=== PATIENT | female | born 1955 | race Caucasian/White ===

== ENCOUNTER 2021-09-13 13:15 | Inpatient (IN) | payer MEDICARE, OTHER ==
[~2021-09-13] VITALS: Ht 172.7 cm; Wt 85.7 kg
--- NOTE | 2021-09-13 14:35 | NUR ---
TAKEN TO CT
--- NOTE | 2021-09-13 14:55 | NUR ---
BLOOD DRAWN AND SENT TO LAB
[2021-09-13 14:58] LABS: BASOPHILS % (AUTO) 0.6 % (0.0-2.0); EOSINOPHILS % (AUTO) 2.2 % (0.0-6.0); HEMATOCRIT 38 % (33-45); HEMOGLOBIN 12.4 g/dL (11.5-14.8); LYMPHOCYTES # (AUTO) 1.1 K/uL (0.8-4.8); MEAN CORPUSCULAR HGB CONC 33 g/dl (31.0-36.0); MEAN CORPUSCULAR VOLUME 96 fL (82-100); MONOCYTES # (AUTO) 0.4 K/uL (0.1-1.30); MONOCYTES % (AUTO) 7.4 % (2.0-12.0); NEUTROPHILS # (AUTO) 3.7 K/uL (1.8-8.9); NEUTROPHILS % (AUTO) 68.8 % (43.0-81.0); PLATELET COUNT (AUTO) 185 K/uL (150-450); RED BLOOD CELL COUNT(AUTO) 3.91 MIL/uL (4.0-5.2); WHITE BLOOD COUNT (AUTO) 5.4 K/uL (4.3-11.0)
[2021-09-13 15:12] LABS: CALCIUM, SERUM 9.1 mg/dL (8.5-10.1); CARBON DIOXIDE 27 mmol/L (21-32); CHLORIDE 106 mmol/L (98-107); CREATININE 1.6 mg/dL (0.6-1.3); GLUCOSE 94 mg/dL (74-106); POTASSIUM 3.6 mmol/L (3.5-5.1); SODIUM SERUM 141 mmol/L (136-145); UREA NITROGEN, BLOOD 26 mg/dL (7-18)
[2021-09-13 15:17] LABS: ACETAMINOPHEN 1 ug/ml (10-30); ALANINE AMINOTRANSFERASE 30 U/L (12-78); ALBUMIN 3.2 g/dL (3.4-5.0); ALKALINE PHOSPHATASE 86 U/L (46-116); ASPARTATE AMINOTRANSFERASE 26 U/L (15-37); BILIRUBIN,DIRECT 0.1 mg/dL (0.0-0.2); BILIRUBIN,TOTAL 0.4 mg/dL (0.2-1.0); TOTAL PROTEIN, SERUM 6.5 g/dL (6.4-8.2)
--- NOTE | 2021-09-13 15:17 | NUR ---
PT AAOX3, VSS. RR EVEN & UNLABORED. CALM & COOPERATIVE. DENIES CP, SOB, DIZZINESS, N/V AT THIS TIME. DIRECTOR OF HUMAN RESOURCES AT BS & WILL CONT TO MONITOR.
[2021-09-13 15:18] LABS: ALCOHOL, BLOOD < 3 mg/dL (0-0)
[2021-09-13 15:27] LABS: BILIRUBIN,URINE SMALL (NEGATIVE); COLOR,URINE DARK YELLOW (YELLOW); LEUKOCYTE ESTERASE ,URINE Small (NEGATIVE); NITRITE, URINE Negative (NEGATIVE); PH,URINE 5.5 (5.0-8.0); PROTEIN,URINE 30 mg/dl (NEGATIVE); UGLUCOSE Negative (NEGATIVE); UROBILINOGEN,URINE 0.2 EU/dL (0.2)
--- NOTE | 2021-09-13 15:39 | NUR ---
DAISHA CALLED BACK WILL BE HERE ETA 60 MINS.
[2021-09-13 15:40] LABS: BACTERIA,URINE Few /HPF (None Seen); RBC,URINE 0-2 /HPF (0-2)
[2021-09-13 15:41] LABS: CALCIUM OXALATE CRYSTALS,UR Moderate /HPF (None Seen); SQUAMOUS EPITHELIAL CELL,UR Moderate /HPF (None Seen); URINE AMORPHOUS URATE Many /HPF (None Seen)
[2021-09-13] MEDS ORDERED: LEVO100T9 PO (17:19)
[2021-09-13] MEDS ORDERED: DULO60CA64 PO (17:19)
[2021-09-13] MEDS ORDERED: ESCI10TA PO (17:19)
[2021-09-13] MEDS ORDERED: FLEC100T2 PO (17:19)
[2021-09-13] MEDS ORDERED: QUET25TA PO (17:19)
[2021-09-13] MEDS ORDERED: ATOR10TA PO (17:19)
[2021-09-13] MEDS ORDERED: MULT-188 PO (17:39)
--- NOTE | 2021-09-13 17:52 | NUR ---
PT CALM & COOPERATIVE, NAD NOTED AT THIS TIME. PT WAS SEEN & EVAL'D BY DAISHA, LOCAL DELIVERY TRUCK DRIVER. WILL CONT TO MONITOR.
--- NOTE | 2021-09-13 18:01 | NUR ---
REPORT GIVEN TO NURSE TA
--- NOTE | 2021-09-13 18:15 | NUR ---
covid swab done and sent to the lab
--- NOTE | 2021-09-13 18:45 | NUR ---
HOLD PLACED AT 1700
--- NOTE | 2021-09-13 19:30 | NUR ---
Pt transported to GPS, VSS
--- NOTE | 2021-09-13 19:50 | NUR ---
GPS-REGULATORY AFFAIRS DIRECTOR NOTES: ADMITTED A 66-Y/O, FEMALE, BIB CAREGIVER TO [facility]. PER HOLD, PATIENT WAS FORGETFUL, SHE HAS POOR INSIGHT AND IS AMBIVALENT REGARDING A VOLUNTARY ADMIT. PT HAS BEEN INCREASINGLY CONFUSED, HAS NOT BEEN EATING WHEN HER CAREGIVER IS NOT THERE AT THE HOUSE, AND SHE BECOMES CONFUSED. SHE ALSO BECOMES VERY HYSTERICAL AND SHE HAS BEEN TALKING TO HER MOTHER AND HALLUCINATING FREQUENTLY AT HOME. UPON FACE TO FACE ASSESSMENT, PATIENT IS ALERT AND ORIENTED X2, ANXIOUS, DEPRESSED MOOD, TEARFUL AND WITH PERIODS OF FORGETFULNESS. PATIENT WAS ADVISED OF HER HOLD. PT'S HANDBOOK WITH PT'S RIGHT AND GUIDE TO PRESCRIPTIONS GIVEN. DR. BURGESS MADE AWARE AND GAVE ADMITTING ORDERS AND POLICE INSPECTOR CHRISTOPH FLOWER WAS NOTIFIED OF PT'S ADMISSION. OFFERED FLU VACCINE BUT PATIENT REFUSED. BELONGINGS WERE INVENTORIED AND CHECKED FOR CONTRABAND. SKIN ASSESSMENT DONE. PATIENT DENIES SI/HI/AVH AT THIS TIME. SAFETY PRECAUTIONS IN PLACE. WILL CONTINUE TO MONITOR Q15MIN ROUNDS FOR SAFETY AND BEHAVIOR. Addendum: 09/13/21 at 2349 by PADMAJA REAL RN PATIENT REFUSED VITAL SIGNS TO BE TAKEN. PATIENT STATED "I WANT TO SLEEP". EXPLAINED RISKS/BENEFITS. Addendum: 09/14/21 at 0047 by PADMAJA REAL RN CORRECTION ON ABOVE DOCUMENTATION: PATIENT RECEIVED FLU VACCINE IN 2020 BUT PATIENT DOES NOT REMEMBER THE MONTH.
[2021-09-13] MEDS ORDERED: MAG HYDROX/AL HYDROX/SIMETH 30 ML UDC PO PRN (20:30)
[2021-09-13] MEDS ORDERED: MAGNESIUM HYDROXIDE 30 ML UDC PO PRN (20:30)
[2021-09-13] MEDS ORDERED: ACETAMINOPHEN 325 MG TABLET PO PRN (20:30)
[2021-09-13] MEDS ORDERED: BLOOD SUGAR DIAGNOSTIC 1 EACH STRIP IN ONE (20:30)
[2021-09-13] MEDS: ATORVASTATIN 10 MG TABLET PO SCH (21:51)
--- NOTE | 2021-09-14 07:00 | NUR ---
RN, OPENING NOTES received patient in bed, aox2, able to communicate needs. compliant and easily redirectable. no s/o of any acute distress noted. denies si/hi, denies visual/auditory halucination. safety precautions maintained per protocol and [id number] check per protocol
[2021-09-14 07:42] LABS: ALBUMIN 2.6 g/dL (3.4-5.0); BILIRUBIN,TOTAL 0.4 mg/dL (0.2-1.0); CALCIUM, SERUM 8.3 mg/dL (8.5-10.1); CREATININE 1.4 mg/dL (0.6-1.3); TOTAL PROTEIN, SERUM 5.5 g/dL (6.4-8.2)
[2021-09-14 07:44] LABS: CHOLESTEROL 176 mg/dL (<200); HDL CHOLESTEROL 72 mg/dL (40-60); LDL 84 mg/dL (0-99); TRIGLYCERIDES 67 mg/dL (30-150)
[2021-09-14 08:00] VITALS: BP 150/71
[2021-09-14] MEDS: LEVOTHYROXINE SODIUM 100 MCG TABLET PO SCH (09:15)
--- NOTE | 2021-09-14 10:17 | NUR ---
MAGALI Initial Discharge Plan: Patient currently lives at home [address], [place] [address]; ([phone]). Pt has a caregiver at home Joycenatividad Nir ([phone]). MAGALI will work with the MD and treatment team to coordinate appropriate discharge.
--- NOTE | 2021-09-14 10:37 | NUR ---
RECEIVED CALL FROM [facility] (PHONE: [phone], FAX: [phone]) REQUESTING TO BE UPDATED SOON THERE IS A DISCHARGE PLANNING FOR PATIENT. WILL CONTINUE WITH PLAN OF CARE
--- NOTE | 2021-09-14 10:52 | NUR ---
Caregiver: This SW contacted patient's caregiver ([phone]) to gather collateral, however, unavailable and this fiction writer left a voicemail.
--- NOTE | 2021-09-14 11:30 | NUR ---
MAGALI Family Contact: MAGALI spoke with patient's Sav brother ([phone]) who stated that he is the DPOA and will send this SW documents. He reported that pt does not have a caregiver at home and that Teresa is just a case supervisor. He reported that pt receives home health 3 times a week but is not enough. He shared that in September 2020 pt was at [facility]. He reported that pt was at [facility] back in April/May. Brother feels that pt will need more care at home. He is open to finding pt a nursing facility.
[2021-09-14] MEDS ORDERED: DULOXETINE HCL 30 MG CAPSULE.DR PO SCH (14:00)
[2021-09-14 15:47] VITALS: BP 158/84
[2021-09-14 16:00] VITALS: BP 158/84
--- NOTE | 2021-09-14 18:04 | NUR ---
RN CLOSING NOTES PATIENT AWAKE IN BED AT THIS TIME. PATIENT REMAINED STABLE THROUGHOUT SHIFT. PT DENIES SI/HI. DENIES VISUAL AND AUDITORY HALLUCINATION. NO TREMORS OR EPS NOTED. SAFETY PRECAUTIONS IN PLACE AND MAINTAINED AT ALL TIMES. BED IN LOWEST LOCKED POSITION, HOB ELEVATED, SIDE RAILS UP X2, CALL LIGHT AND TABLE WITHIN REACH, WILL ENDORSE TO BAG MENDER NURSE FOR MARIXA
[2021-09-14 20:00] VITALS: BP 157/84
[2021-09-14] MEDS: risperiDONE 1 MG TABLET PO SCH (22:22)
[2021-09-14] MEDS: ATORVASTATIN 10 MG TABLET PO SCH (22:22)
[2021-09-14] MEDS: BENZTROPINE MESYLATE (1 MG) 1 MG TABLET PO SCH (22:23)
[2021-09-15 08:00] VITALS: BP 153/76
[2021-09-15] MEDS: LEVOTHYROXINE SODIUM 100 MCG TABLET PO SCH (08:11)
--- NOTE | 2021-09-15 10:55 | NUR ---
MAGALI SNF Referral/Contact: MAGALI sent clinicals to [facility] attn to Deisi for placement. Deisi and admin Estrella stated they are accepting pt.
[2021-09-15] MEDS: DULOXETINE HCL 30 MG CAPSULE.DR PO SCH (13:08)
[2021-09-15] MEDS: LORAZEPAM 0.5 MG TABLET PO PRN (15:13)
[2021-09-15 16:00] VITALS: BP 152/78
[2021-09-15 20:44] VITALS: BP 153/90
[2021-09-15 21:30] VITALS: BP 138/80
[2021-09-15] MEDS: risperiDONE 1 MG TABLET PO SCH (21:47)
[2021-09-15] MEDS: BENZTROPINE MESYLATE (1 MG) 1 MG TABLET PO SCH (21:47)
[2021-09-15] MEDS: ATORVASTATIN 10 MG TABLET PO SCH (21:47)
[2021-09-16 06:41] LABS: BASOPHILS % (AUTO) 0.5 % (0.0-2.0); EOSINOPHILS % (AUTO) 3.9 % (0.0-6.0); HEMATOCRIT 33 % (33-45); HEMOGLOBIN 11.2 g/dL (11.5-14.8); LYMPHOCYTES # (AUTO) 1.5 K/uL (0.8-4.8); LYMPHOCYTES % (AUTO) 30.7 % (20.0-44.0); MEAN CORPUSCULAR HGB CONC 34 g/dl (31.0-36.0); MEAN CORPUSCULAR VOLUME 95 fL (82-100); MONOCYTES # (AUTO) 0.5 K/uL (0.1-1.30); MONOCYTES % (AUTO) 9.7 % (2.0-12.0); NEUTROPHILS # (AUTO) 2.7 K/uL (1.8-8.9); NEUTROPHILS % (AUTO) 55.2 % (43.0-81.0); PLATELET COUNT (AUTO) 166 K/uL (150-450); WHITE BLOOD COUNT (AUTO) 4.9 K/uL (4.3-11.0)
[2021-09-16 06:54] LABS: CALCIUM, SERUM 8.8 mg/dL (8.5-10.1); CREATININE 1.3 mg/dL (0.6-1.3); MAGNESIUM 1.7 mg/dL (1.8-2.4); PHOSPHORUS 3.2 mg/dL (2.5-4.9)
[2021-09-16] MEDS: LEVOTHYROXINE SODIUM 100 MCG TABLET PO SCH (07:56)
[2021-09-16 08:00] VITALS: BP 137/69
[2021-09-16] MEDS ORDERED: MAGNESIUM OXIDE 400 MG TABLET PO ONE (10:30)
[2021-09-16] MEDS: DULOXETINE HCL 30 MG CAPSULE.DR PO SCH (12:25)
[2021-09-16 16:05] VITALS: BP 146/80
[2021-09-16 20:00] VITALS: BP 152/81
[2021-09-16] MEDS: risperiDONE 1 MG TABLET PO SCH (21:53)
[2021-09-16] MEDS: ATORVASTATIN 10 MG TABLET PO SCH (21:53)
[2021-09-16] MEDS: BENZTROPINE MESYLATE (1 MG) 1 MG TABLET PO SCH (21:53)
[2021-09-16 22:00] VITALS: BP 135/78
[2021-09-17 08:00] VITALS: BP 156/64
[2021-09-17] MEDS: LEVOTHYROXINE SODIUM 100 MCG TABLET PO SCH (08:55)
[2021-09-17] MEDS: DULOXETINE HCL 30 MG CAPSULE.DR PO SCH (12:40)
[2021-09-17] MEDS: LOSARTAN POTASSIUM 25 MG TABLET PO SCH (14:22)
[2021-09-17 16:00] VITALS: BP 145/72
[2021-09-17 20:07] VITALS: BP_SYST 154; BP_SYST 160; BP_DIAS 77; BP_DIAS 79
[2021-09-17 20:20] VITALS: BP 154/79
[2021-09-17] MEDS: ATORVASTATIN 10 MG TABLET PO SCH (21:47)
[2021-09-17] MEDS: BENZTROPINE MESYLATE (1 MG) 1 MG TABLET PO SCH (21:47)
[2021-09-17] MEDS: risperiDONE 1 MG TABLET PO SCH (21:48)
[2021-09-18 08:00] VITALS: BP 135/65
[2021-09-18] MEDS: LEVOTHYROXINE SODIUM 100 MCG TABLET PO SCH (08:46)
[2021-09-18] MEDS: LOSARTAN POTASSIUM 25 MG TABLET PO SCH (08:46)
--- NOTE | 2021-09-18 09:00 | NUR ---
RN NOTE- PT FLAT, WITHDRAWN, MINIMAL EYE CONTACT, SPEAKS WHEN ENGAGED BUT OTHERWISE QUIET. MED COMPLIANT, PO INTAKE FAIR, DENIES ALL
[2021-09-18] MEDS: DULOXETINE HCL 30 MG CAPSULE.DR PO SCH (12:46)
--- NOTE | 2021-09-18 15:19 | NUR ---
MAGALI Family Contact: MAGALI spoke with patient's Sav brother SHERRIE ([phone]) and notified that pt is accepted at [facility]. He was agreeable with this discharge.
[2021-09-18 16:00] VITALS: BP 155/74
[2021-09-18 20:22] VITALS: BP 169/88
[2021-09-18 21:00] VITALS: BP 142/64
[2021-09-18] MEDS: ATORVASTATIN 10 MG TABLET PO SCH (21:35)
[2021-09-18] MEDS: BENZTROPINE MESYLATE (1 MG) 1 MG TABLET PO SCH (21:35)
[2021-09-18] MEDS: risperiDONE 1 MG TABLET PO SCH (21:35)
[2021-09-18] MEDS: TEMAZEPAM 7.5 MG CAPSULE PO PRN (21:36)
[2021-09-19 08:00] VITALS: BP 152/79
[2021-09-19] MEDS: LEVOTHYROXINE SODIUM 100 MCG TABLET PO SCH (08:44)
[2021-09-19] MEDS: LOSARTAN POTASSIUM 25 MG TABLET PO SCH (08:44)
--- NOTE | 2021-09-19 10:01 | NUR ---
Court Hearing: Patient's court hearing for 8820 was today and it was upheld for GD and danger to others.
[2021-09-19] MEDS: DULOXETINE HCL 30 MG CAPSULE.DR PO SCH (12:13)
--- NOTE | 2021-09-19 15:06 | NUR ---
SW Note: SW spoke with pt in regards to pt being accepted at [facility]. Pt is agreeing on going to nursing facility.
[2021-09-19 16:05] VITALS: BP 142/61
[2021-09-19] MEDS: risperiDONE 1 MG TABLET PO SCH ×2 (16:20→21:19)
[2021-09-19 19:56] VITALS: BP 152/65
[2021-09-19] MEDS: ATORVASTATIN 10 MG TABLET PO SCH (21:19)
[2021-09-19] MEDS: BENZTROPINE MESYLATE (1 MG) 1 MG TABLET PO SCH (21:19)
[2021-09-20 08:00] VITALS: BP 153/69
[2021-09-20] MEDS: LEVOTHYROXINE SODIUM 100 MCG TABLET PO SCH (08:18)
[2021-09-20] MEDS: LOSARTAN POTASSIUM 25 MG TABLET PO SCH (08:18)
[2021-09-20] MEDS: risperiDONE 1 MG TABLET PO SCH ×3 (08:19→20:38)
--- NOTE | 2021-09-20 09:32 | NUR ---
MAGALI Discharge Plan: Patient will be discharged to [facility] [address] [place] [address] ([phone]). Please arrange ambulance transportation. Spoke with Estrella, Admin Coordinator at the facility who states they are ready to accept the patient today. Patient is alert and oriented x2, is unable to plan for self-care at this time, however, is willing to accept care at [facility]. Patient denies any suicidal or homicidal ideation.b Patients DPOA brother Sav ([phone]) is aware and agreeable. Patient will continue to follow-up with (Psychiatrist) Dr. Simms [address] [facility] [address], [place] [address]; ([phone]) and (Deburring Machine Operator) Dr. Aleman [address] [facility] [address], [place] [address]; ([phone]). Patient presents with euthymic mood and congruent affect. Addendum: 09/20/21 at 0940 by MAGALI SALAZAR DISCHARGE FOR SATURDAY
--- NOTE | 2021-09-20 09:40 | NUR ---
MAGALI EARLY DISCHARGE ENTRY FOR 09/25: Patient will be discharged to [facility] [address] [place] [address] ([phone]). Please arrange ambulance transportation. Spoke with Estrella, Admin Coordinator at the facility who states they are ready to accept the patient today. Patient is alert and oriented x2, is unable to plan for self-care at this time, however, is willing to accept care at [facility]. Patient denies any suicidal or homicidal ideation.b Patients DPOA brother Sav ([phone]) is aware and agreeable. Patient will continue to follow-up with (Psychiatrist) Dr. Simms [address] [facility] [address], [place] [address]; ([phone]) and (Department Supervisor) Dr. Aleman [address] [facility] [address], [place] [address]; ([phone]). Patient presents with euthymic mood and congruent affect.
[2021-09-20] MEDS: LORAZEPAM 0.5 MG TABLET PO PRN (13:16)
[2021-09-20] MEDS: DULOXETINE HCL 30 MG CAPSULE.DR PO SCH (13:20)
--- NOTE | 2021-09-20 13:20 | NUR ---
RN-CO: ATIVAN 0.5 MG PO GIVEN FOR INSISTING TO LEAVE THE UNIT.
[2021-09-20 16:00] VITALS: BP 128/77
[2021-09-20 19:56] VITALS: BP 156/73
[2021-09-20] MEDS: TEMAZEPAM 7.5 MG CAPSULE PO PRN (20:39)
[2021-09-20] MEDS: ATORVASTATIN 10 MG TABLET PO SCH (21:16)
[2021-09-20] MEDS: BENZTROPINE MESYLATE (1 MG) 1 MG TABLET PO SCH (21:16)
[2021-09-21] MEDS: risperiDONE 1 MG TABLET PO SCH ×3 (07:57→21:31)
[2021-09-21 08:00] VITALS: BP 150/73
[2021-09-21] MEDS: LOSARTAN POTASSIUM 25 MG TABLET PO SCH (08:05)
[2021-09-21] MEDS: LEVOTHYROXINE SODIUM 100 MCG TABLET PO SCH (08:05)
[2021-09-21] MEDS: DULOXETINE HCL 30 MG CAPSULE.DR PO SCH (13:08)
[2021-09-21 13:36] LABS: ALBUMIN 2.7 g/dL (3.4-5.0); BILIRUBIN,TOTAL 0.4 mg/dL (0.2-1.0); CALCIUM, SERUM 8.9 mg/dL (8.5-10.1); CREATININE 1.2 mg/dL (0.6-1.3); POTASSIUM 4.1 mmol/L (3.5-5.1); TOTAL PROTEIN, SERUM 5.6 g/dL (6.4-8.2)
[2021-09-21 14:22] LABS: BASOPHILS % (AUTO) 0.7 % (0.0-2.0); EOSINOPHILS % (AUTO) 3.1 % (0.0-6.0); HEMATOCRIT 33 % (33-45); HEMOGLOBIN 11.1 g/dL (11.5-14.8); LYMPHOCYTES # (AUTO) 1.1 K/uL (0.8-4.8); LYMPHOCYTES % (AUTO) 23.3 % (20.0-44.0); MEAN CORPUSCULAR HGB CONC 34 g/dl (31.0-36.0); MEAN CORPUSCULAR VOLUME 97 fL (82-100); MONOCYTES # (AUTO) 0.4 K/uL (0.1-1.30); MONOCYTES % (AUTO) 8.7 % (2.0-12.0); NEUTROPHILS % (AUTO) 64.2 % (43.0-81.0); PLATELET COUNT (AUTO) 178 K/uL (150-450); RED BLOOD CELL COUNT(AUTO) 3.41 MIL/uL (4.0-5.2); WHITE BLOOD COUNT (AUTO) 4.7 K/uL (4.3-11.0)
[2021-09-21 16:00] VITALS: BP 149/72
[2021-09-21 19:52] VITALS: BP 147/77
[2021-09-21] MEDS: ATORVASTATIN 10 MG TABLET PO SCH (21:32)
[2021-09-21] MEDS: BENZTROPINE MESYLATE (1 MG) 1 MG TABLET PO SCH (21:32)
--- NOTE | 2021-09-22 06:33 | NUR ---
RN CLOSING NOTES PATIENT RESTING IN BED AT THIS TIME. PATIENT REMAINED STABLE THROUGHOUT SHIFT. PT DENIES SI/HI. DENIES VISUAL AND AUDITORY HALLUCINATION. NO TREMORS OR EPS NOTED. SAFETY PRECAUTIONS IN PLACE AND MAINTAINED AT ALL TIMES. BED IN LOWEST LOCKED POSITION, HOB ELEVATED, SIDE RAILS UP X2, CALL LIGHT AND TABLE WITHIN REACH, WILL ENDORSE TO BOXING PROMOTER NURSE FOR MARIXA Addendum: 09/22/21 at 0646 by DANY CHU RN RN CLOSING NOTES PATIENT RESTING IN BED AT THIS TIME. PATIENT REMAINED STABLE THROUGHOUT SHIFT. PT DENIES SI/HI. DENIES VISUAL AND AUDITORY HALLUCINATION. NO TREMORS OR EPS NOTED. SAFETY PRECAUTIONS IN PLACE AND MAINTAINED AT ALL TIMES. BED IN LOWEST LOCKED POSITION, HOB ELEVATED, SIDE RAILS UP X2, CALL LIGHT AND TABLE WITHIN REACH, WILL ENDORSE TO AM SHIFT NURSE FOR MARIXA
[2021-09-22 08:00] VITALS: BP 149/68
[2021-09-22] MEDS: risperiDONE 1 MG TABLET PO SCH ×3 (08:30→21:31)
[2021-09-22] MEDS: LEVOTHYROXINE SODIUM 100 MCG TABLET PO SCH (08:30)
[2021-09-22] MEDS: LOSARTAN POTASSIUM 50 MG TABLET PO SCH (08:31)
[2021-09-22] MEDS: DULOXETINE HCL 30 MG CAPSULE.DR PO SCH (12:17)
--- NOTE | 2021-09-22 13:54 | NUR ---
Home Health: SW received a call from pt's home health from [facility] ([phone]) left a voicemail that pt will be discharged to [facility].
[2021-09-22 16:00] VITALS: BP 155/88
[2021-09-22 20:14] VITALS: BP 151/65
[2021-09-22] MEDS: BENZTROPINE MESYLATE (1 MG) 1 MG TABLET PO SCH (21:31)
[2021-09-22] MEDS: ATORVASTATIN 10 MG TABLET PO SCH (21:31)
[2021-09-23 08:00] VITALS: BP 141/96
[2021-09-23] MEDS: LOSARTAN POTASSIUM 50 MG TABLET PO SCH (08:23)
[2021-09-23] MEDS: LEVOTHYROXINE SODIUM 100 MCG TABLET PO SCH (08:23)
[2021-09-23] MEDS: risperiDONE 1 MG TABLET PO SCH ×3 (08:23→21:12)
[2021-09-23] MEDS: DULOXETINE HCL 30 MG CAPSULE.DR PO SCH (12:48)
[2021-09-23 16:00] VITALS: BP 142/91
[2021-09-23 19:59] VITALS: BP 138/75
[2021-09-23] MEDS: ATORVASTATIN 10 MG TABLET PO SCH (21:13)
[2021-09-23] MEDS: BENZTROPINE MESYLATE (1 MG) 1 MG TABLET PO SCH (21:13)
--- NOTE | 2021-09-23 21:16 | NUR ---
GPS RN NOTES: RISPERDAL 0.5MG AND COGENTIN 0.5MG WASTED PER PARTIAL DOSE ORDER.
[2021-09-24 08:00] VITALS: BP 146/75
[2021-09-24] MEDS: risperiDONE 1 MG TABLET PO SCH ×3 (08:04→21:20)
[2021-09-24] MEDS: LOSARTAN POTASSIUM 50 MG TABLET PO SCH (08:04)
[2021-09-24] MEDS: LEVOTHYROXINE SODIUM 100 MCG TABLET PO SCH (08:04)
[2021-09-24] MEDS ORDERED: diphenhydrAMINE HCL 25 MG CAPSULE PO PRN (09:30)
[2021-09-24] MEDS: DULOXETINE HCL 30 MG CAPSULE.DR PO SCH (13:39)
[2021-09-24 16:00] VITALS: BP 151/94
--- NOTE | 2021-09-24 19:30 | NUR ---
GPS RN NOTE, RECEIVED PATIENT AWAKE AND IN BED, NO S/S OR COMPLAINTS OF PAIN AT THIS TIME. PATIENT IS DISPLAYING NO S/S OF APPARENT DISTRESS AT THIS TIME. PATIENT BREATHING IS UNLABORED WITH EQUAL RISE AND FALL OF THE CHEST. PATIENT IS ALERT AND ORIENTED X 3 ON ROOM AIR WITH A SPO2 97%. PATIENT IS COMPLIANT WITH MEDICATIONS, ANXIOUS AT TIMES, PARANOID, POLITE, COOPERATIVE, AND NEEDS REDIRECTION. PATIENT DENIES SUICIDAL AND HOMICIDAL IDEATIONS AT THIS TIME. PATIENT ASSISTED WITH TURNING AND REPOSITIONING Q2HR AND PRN FOR COMFORT AND CIRCULATION. PATIENT HAS NO NEEDS AT THIS TIME. PATIENT EDUCATED ON THE USE OF THE CALL HUNT. PATIENT BED SIDE RAILS UP X 2 FOR SAFETY. PATIENT BED IS LOCKED, LOW, WITH BED ALARM ON. WILL CONTINUE TO MONITOR THIS PATIENT Q15 MINUTES WITH THE HELP OF STAFF TO MAINTAIN SAFETY.
[2021-09-24 19:47] VITALS: BP 126/62
--- NOTE | 2021-09-24 19:48 | NUR ---
GPS RN NOTE, PATIENT REFUSED TO HAVE SKIN ASSESSMENT AND WEEKLY PHOTO'S TAKEN PER POLICY. OFFERED THREE TIMES AND STILL PATIENT REFUSED STATING, " NO IT'S MY BODY AND I DON'T FELL COMFORTABLE WITH THAT ". ECAUDATED PATIENT ABOUT HOSPITAL POLICY. WILL CONTINUE TO MONITOR THIS PATIENT WITH THE HELP OF STAFF.
[2021-09-24] MEDS: ATORVASTATIN 10 MG TABLET PO SCH (21:20)
[2021-09-24] MEDS: BENZTROPINE MESYLATE (1 MG) 1 MG TABLET PO SCH (21:21)
[2021-09-25] MEDS: LORAZEPAM 0.5 MG TABLET PO PRN (02:30)
--- NOTE | 2021-09-25 02:30 | NUR ---
GPS RN NOTE, PATIENT HAS A COMPLAINT OF FEELING ANXIOUS AND IS REQUESTING ATIVAN AT THIS TIME. PATIENT VITAL SIGNS ARE STABLE. GAVE PATIENT ATIVAN 0.5MG PO Q6HR PRN ORDERED. WILL REASSESS FOR ANXIETY AND I WILL CONTINUE TO MONITOR THIS PATIENT WITH THE HELP OF STAFF.
[2021-09-25 08:00] VITALS: BP 139/68
[2021-09-25 08:41] VITALS: BP 139/68
[2021-09-25] MEDS: LOSARTAN POTASSIUM 50 MG TABLET PO SCH (08:41)
[2021-09-25] MEDS: LEVOTHYROXINE SODIUM 100 MCG TABLET PO SCH (08:42)
[2021-09-25] MEDS: risperiDONE 1 MG TABLET PO SCH (08:42)
[2021-09-25] MEDS: DULOXETINE HCL 30 MG CAPSULE.DR PO SCH (12:47)
--- NOTE | 2021-09-25 13:40 | NUR ---
Patient has been discharged to [facility] via ambulance transportation. Report given to Brittany MARIE. Patient is alert and oriented x2-3, is unable to plan for self-care at this time, however, is willing to accept care at [facility]. Patient denies any suicidal or homicidal ideation at this time. Pt denies any visual and auditory hallucinations at this time. Patients DPOA brother Sav ([phone]) is aware and agreeable. Patient will continue to follow-up with (Psychiatrist) Dr. Simms [address] [facility] [address], [place] [address]; ([phone]) and (Pressroom Supervisor) Dr. Aleman [address] [facility] [address], [place] [address]; ([phone]). Patient calm and cooperative. Exit Care packet given along with instructions for after care and consolidated medication prescription list. All valuables and belongings returned and signed. Pt refused to have pictures taken. Pt left the unit at 1335.
== END 2021-09-25 13:35 | DRG 885 ==
LOC: ER 13:21 → GPS 19:43
PROVIDERS: ADMIT Psychiatry & Neurology Psychosomatic Medicine; ATTEND Hospitalist
DX: F33.3 Major depressive disorder, recurrent, severe with psychotic symptoms (principal); F01.50 Vascular dementia, unspecified severity, without behavioral disturbance, psychotic disturbance, mood disturbance, and anxiety; N17.0 Acute kidney failure with tubular necrosis; E44.1 Mild protein-calorie malnutrition; F29 Unspecified psychosis not due to a substance or known physiological condition; E03.9 Hypothyroidism, unspecified; Z20.822 Contact with and (suspected) exposure to COVID-19; F41.9 Anxiety disorder, unspecified; E78.5 Hyperlipidemia, unspecified; I10 Essential (primary) hypertension; Z73.6 Limitation of activities due to disability; E88.09 Other disorders of plasma-protein metabolism, not elsewhere classified; Z68.28 Body mass index [BMI] 28.0-28.9, adult
CPT/HCPCS: 36415; 70450-TC; 80048-TC; 80053-TC; 80061-TC; 80076-TC; 81001; 83735-TC; 84100-TC; 84484-TC; 85025-TC; 87081-TC; 87086-TC; C9803; G0480